=== PATIENT | female | born 1990 | race Caucasian/White ===

== ENCOUNTER 2020-08-11 13:05 | Observation (INO) | payer OTHER ==
[2020-08-11] MEDS ORDERED: SODIUM CHLORIDE 0.9% 1,000 ML IV STA (13:27)
[2020-08-11] MEDS ORDERED: ONDANSETRON 4 MG/2 ML VIAL IVP STA (13:34)
[2020-08-11] MEDS ORDERED: PANTOPRAZOLE 40 MG/10 ML VIAL IVP STA (13:34)
--- NOTE | 2020-08-11 13:36 | ED ---
General Adult HPI - General Chief complaint: Alcohol Stated complaint: Vomiting Time Seen by Provider: 08/11/20 13:11 Source: patient, family, RN notes reviewed Mode of arrival: ambulatory Limitations: no limitations - History of Present Illness Initial comments: Patient is a pleasant 22-year-old female presenting to the emergency Department with alcohol intoxication. Onset of symptoms was this morning. Patient drink alcohol prior to going to [facility]. [place] [facility] found patient executed and advised her to come to the emergency department. Patient states she did vomit once today. Patient does have some epigastric discomfort similar to her chronic pancreatitis. - Related Data Home Medications Medication Instructions Recorded Confirmed No Known Home Medications 08/11/20 08/11/20 Allergies Allergy/AdvReac Type Severity Reaction Status Date / Time amoxicillin Allergy Unknown Verified 08/11/20 13:55 codeine Allergy Rash/Hives Verified 08/11/20 13:56 latex Allergy Rash/Hives/ Verified 08/11/20 13:56 Blisters morphine Allergy Unknown Verified 08/11/20 13:55 Review of Systems ROS Statement: Those systems with pertinent positive or pertinent negative responses have been documented in the HPI. ROS Other: All systems not noted in ROS Statement are negative. Constitutional: Denies: fever Eyes: Denies: eye pain ENT: Denies: ear pain Respiratory: Denies: cough Cardiovascular: Denies: chest pain Endocrine: Denies: fatigue Gastrointestinal: Reports: as per HPI, abdominal pain, nausea, vomiting Genitourinary: Denies: dysuria Musculoskeletal: Denies: back pain Skin: Denies: rash Neurological: Denies: weakness Past Medical History Past Medical History: No Reported History History of Any Multi-Drug Resistant Organisms: None Reported Past Surgical History: Back Surgery Past Psychological History: No Psychological Hx Reported Smoking Status: Current every day smoker Past Alcohol Use History: Abuse, Daily Past Drug Use History: None Reported - Past Family History Mother Additional Family Medical History / Comment(s): HTN General Exam Limitations: no limitations General appearance: alert, in no apparent distress Head exam: Present: normocephalic Eye exam: Present: normal appearance, PERRL, EOMI, nystagmus ENT exam: Present: normal oropharynx Neck exam: Present: normal inspection Respiratory exam: Present: normal lung sounds bilaterally Cardiovascular Exam: Present: tachycardia GI/Abdominal exam: Present: soft, tenderness (Mild epigastric tenderness). Absent: distended, guarding, rebound, rigid, pulsatile mass Extremities exam: Present: normal inspection Neurological exam: Present: alert Psychiatric exam: Present: normal affect, normal mood Skin exam: Present: normal color Course Vital Signs 08/11/20 08/11/20 13:06 15:39 Temperature 98.1 F Pulse Rate 125 H 106 H Respiratory 20 18 Rate Blood Pressure 131/75 139/90 O2 Sat by Pulse 98 99 Oximetry Medical Decision Making - Medical Decision Making Patient and family updated. Case was discussed with Dr. Gonzalez, who will admit covering hospital call. - Lab Data Result diagrams: 08/11/20 13:48 08/11/20 13:48 Disposition Clinical Impression: Alcoholic intoxication Disposition: ADMITTED IP TO THIS HOSP Is patient prescribed a controlled substance at d/c from ED?: No Decision Time: 13:36
[2020-08-11] MEDS ORDERED: NALOXONE 0.4 MG/ML 1 ML VIAL IV PRN (13:37)
[2020-08-11] MEDS ORDERED: LORazepam 2 MG/ML INJ IV PRN (13:38)
[2020-08-11] MEDS: LORazepam 2 MG/ML INJ IV PRN ×4 (13:50→17:41)
[2020-08-11 14:21] LABS: Partial Thromboplastin Time 24.8 sec (22.0-30.0); Prothrombin Time 10.8 sec (9.0-12.0)
[2020-08-11 14:38] LABS: ALT 72 U/L (4-34); AST 94 U/L (14-36); African American GFR (CKD) >90 (>60 ml/min/1.73 sqM); Alkaline Phosphatase 96 U/L (38-126); Amylase 49 U/L (30-110); Anion Gap 17 mmol/L; Blood Urea Nitrogen 16 mg/dL (7-17); Calcium 9.6 mg/dL (8.4-10.2); Carbon Dioxide 20 mmol/L (22-30); Chloride 109 mmol/L (98-107); Glucose 83 mg/dL (74-99); Lipase 125 U/L (23-300); Magnesium 1.9 mg/dL (1.6-2.3); Non-African American GFR(CKD) >90 (>60 ml/min/1.73 sqM); Potassium 4.3 mmol/L (3.5-5.1); Sodium 146 mmol/L (137-145); Total Bilirubin 0.3 mg/dL (0.2-1.3); Total Protein 7.8 g/dL (6.3-8.2)
[2020-08-11 14:51] LABS: Basophils # (A) 0.1 k/uL (0-0.2); Basophils % (A) 1 %; Eosinophils # (A) 0.2 k/uL (0-0.7); Eosinophils % (A) 2 %; HCT 45.7 % (34.0-46.0); HGB 15.8 gm/dL (11.4-16.0); Lymphocytes # (A) 4.5 k/uL (1.0-4.8); Lymphocytes % (A) 35 %; MCH 32.7 pg (25.0-35.0); MCHC 34.7 g/dL (31.0-37.0); MCV 94.4 fL (80.0-100.0); Mean Platelet Volume 7.6; Monocytes # (A) 0.6 k/uL (0-1.0); Monocytes % (A) 5 %; Neutrophils # (A) 7.3 k/uL (1.3-7.7); Neutrophils % (A) 57 %; Platelet Count 365 k/uL (150-450); RBC 4.84 m/uL (3.80-5.40); RDW 12.7 % (11.5-15.5); WBC 12.9 k/uL (3.8-10.6)
[2020-08-11] MEDS: HYDROmorphone 0.5 MG/0.5 ML SYRINGE IVP PRN ×3 (16:29→21:51)
[2020-08-11] MEDS: THIAMINE 100 MG TAB PO SCH (16:29)
[2020-08-11] MEDS: SODIUM CHLORIDE 0.9% 1,000 ML IV SCH (16:30)
[2020-08-11] MEDS ORDERED: ALPRAZolam 0.25 MG TAB PO PRN (19:50)
--- NOTE | 2020-08-11 22:46 | P.HPIM ---
History of Present Illness H&P Date: 08/11/20 Chief Complaint: alcohol intoxication Patient is a 30-year-old female with a long history of daily alcohol use one- point, current everyday smoker was brought to ER due to alcohol intoxication. Patient went to get enrolled in the [place] rehab program but she did not drink prior to going.. Patient was found intoxicated and advised her to go to ER. Patient did have an episode of vomiting this morning. She is also complaining of abdominal pain requesting IV pain medications. Lipase not elevated. Laboratory showed WBC 12.9, hemoglobin 15.8 and platelets 365 Sodium 146 potassium 4.3 chloride 109 bicarb 20. 69 creatinine 0.59 AST 94 ALT 72 and alk phos 96. Amylase 49 lipase 125 Serum alcohol level not reported. Coronavirus PCR not detected. Review of Systems Patient is intoxicated. Complete review of systems could not be obtained except as per HPI. Past Medical History Past Medical History: No Reported History History of Any Multi-Drug Resistant Organisms: None Reported Past Surgical History: Back Surgery Past Psychological History: No Psychological Hx Reported Smoking Status: Current every day smoker Past Alcohol Use History: Abuse, Daily Past Drug Use History: None Reported - Past Family History Mother Additional Family Medical History / Comment(s): HTN Medications and Allergies Home Medications Medication Instructions Recorded Confirmed Type No Known Home Medications 08/11/20 08/11/20 History Allergies Allergy/AdvReac Type Severity Reaction Status Date / Time amoxicillin Allergy Unknown Verified 08/11/20 13:55 codeine Allergy Rash/Hives Verified 08/11/20 13:56 latex Allergy Rash/Hives/ Verified 08/11/20 13:56 Blisters morphine Allergy Unknown Verified 08/11/20 13:55 Physical Exam Vitals: Vital Signs Temp Pulse Pulse Resp BP BP Pulse Ox 08/11/20 16:00 98.3 F 115 H 20 121/85 94 L 08/11/20 15:39 106 H 18 139/90 99 08/11/20 13:06 98.1 F 125 H 20 131/75 98 Intake and Output 08/11/20 08/11/20 08/11/20 06:59 14:59 22:59 Other: Weight 68.039 kg PHYSICAL EXAMINATION: Patient is lying in the bed comfortably, no acute distress, awake alert and oriented. anxious. HEENT: Normocephalic. Neck is supple. Pupils reactive. Nostrils clear. Oral cavity is moist. Neck reveals no JVD, carotid bruits, or thyromegaly. CHEST EXAMINATION: Trachea is central. Symmetrical expansion. Lung larsen clear to auscultation and percussion. CARDIAC: Normal S1, S2 with no gallops. No murmurs ABDOMEN: Soft.Mild epigastric tenderness. Bowel sounds normal. No organomegaly. No abdominal bruits. Extremities: reveal no edema. No clubbing or cyanosis Neurologically awake, alert, oriented x3 with well-coordinated movements. No f ocal deficits noted Skin: No rash or skin lesions. Psychiatric: Coperative. anxious Musculoskeletal: No joint swelling or deformity. Normal range of motion. Results CBC & Chem 7: 08/11/20 13:48 08/11/20 13:48 Labs: Abnormal Lab Results - Last 24 Hours (Table) 08/11/20 08/11/20 Range/Units 13:48 13:48 WBC 12.9 H (3.8-10.6) k/uL Sodium 146 H (137-145) mmol/L Chloride 109 H (98-107) mmol/L Carbon Dioxide 20 L (22-30) mmol/L AST 94 H (14-36) U/L ALT 72 H (4-34) U/L Thrombosis Risk Factor Assmnt - DVT/VTE Prophylaxis DVT/VTE Prophylaxis: Mechanical Prophylaxis ordered Assessment and Plan Assessment: Acute alcohol intoxication Severe alcohol abuse with 1 pint daily Epigastric abdominal pain possible alcoholic gastritis. Current everyday smoker DVT prophylaxis with early ambulation. Plan: Patient will be continued IV hydration with normal saline. Continue with IV Protonix daily and pain management Dilaudid and monitor for alcohol withdrawal symptoms. Continue with multivitamins and thiamine. Patient has been counseled extensively for smoking cessation and alcohol abstinence. Continue to follow closely. Time with Patient: Greater than 30
[2020-08-12] MEDS: ONDANSETRON 4 MG/2 ML VIAL IVP PRN ×3 (00:30→19:25)
[2020-08-12] MEDS: HYDROmorphone 0.5 MG/0.5 ML SYRINGE IVP PRN ×7 (00:54→19:25)
[2020-08-12] MEDS: SODIUM CHLORIDE 0.9% 1,000 ML IV SCH ×3 (03:53→20:10)
[2020-08-12] MEDS: LORazepam 2 MG/ML INJ IV PRN ×3 (07:47→22:50)
[2020-08-12] MEDS: THIAMINE 100 MG TAB PO SCH ×2 (09:34→16:55)
[2020-08-12] MEDS: PANTOPRAZOLE 40 MG/10 ML VIAL IV SCH (09:35)
[2020-08-12 12:11] LABS: Basophils # (A) 0.02 X 10*3/uL (0.00-0.10); Basophils % (A) 0.2 %; Eosinophils # (A) 0.16 X 10*3/uL (0.04-0.35); Eosinophils % (A) 1.7 %; HCT 37.9 % (37.2-46.3); HGB 12.7 g/dL (12.0-15.0); Lymphocytes # (A) 2.29 X 10*3/uL (0.90-5.00); MCH 32.8 pg (27.0-32.0); MCHC 33.5 g/dL (32.0-37.0); MCV 97.9 fL (80.0-97.0); Mean Platelet Volume 10.7 fL (9.5-12.2); Monocytes # (A) 0.52 X 10*3/uL (0.20-1.00); Monocytes % (A) 5.4 %; Neutrophils # (A) 6.55 X 10*3/uL (1.80-7.70); Neutrophils % (A) 68.5 %; Platelet Count 209 X 10*3/uL (140-440); RBC 3.87 X 10*6/uL (4.10-5.20); RDW 12.3 % (11.5-14.5); WBC 9.56 X 10*3/uL (4.50-10.00)
[2020-08-12 12:54] LABS: African American GFR (CKD) 164.3 (60.0-200.0); Anion Gap 13.3 mmol/L (4.00-12.00); Calcium 8.3 mg/dL (8.7-10.3); Carbon Dioxide 18.7 mmol/L (21.6-31.8); Non-African American GFR(CKD) 141.7 (60.0-200.0); Potassium 4.2 mmol/L (3.5-5.5)
[2020-08-12] MEDS: HYDROcodone/APAP 5-325MG 1 EACH TAB PO PRN ×2 (16:57→22:49)
[2020-08-12 18:39] LABS: ALT 58 U/L (4-34); AST 64 U/L (14-36); African American GFR (CKD) >90 (>60 ml/min/1.73 sqM); Albumin 4.3 g/dL (3.5-5.0); Albumin/Globulin Ratio 1.7; Alkaline Phosphatase 75 U/L (38-126); Anion Gap 11 mmol/L; Blood Urea Nitrogen 4 mg/dL (7-17); Calcium 8.8 mg/dL (8.4-10.2); Carbon Dioxide 19 mmol/L (22-30); Chloride 103 mmol/L (98-107); Globulin 2.6 g/dL; Glucose 75 mg/dL (74-99); Non-African American GFR(CKD) >90 (>60 ml/min/1.73 sqM); Potassium 4.6 mmol/L (3.5-5.1); Sodium 133 mmol/L (137-145); Total Bilirubin 1.1 mg/dL (0.2-1.3); Total Protein 6.9 g/dL (6.3-8.2)
[2020-08-13] MEDS: LORazepam 2 MG/ML INJ IV PRN ×2 (01:05→06:04)
[2020-08-13] MEDS ORDERED: HYDROmorphone 0.5 MG/0.5 ML SYRINGE IVP STA ×2 (01:56→08:39)
--- NOTE | 2020-08-13 03:42 | PN ---
PROGRESS NOTE DATE OF SERVICE: 08/12/2020 INTERVAL HISTORY: This 30-year-old woman who was admitted with acute alcohol intoxication is being closely monitored. Patient also had epigastric chest pain. No chest pain. No palpitations. No fever. She is complaining of abdominal pain. PHYSICAL EXAMINATION: Alert and oriented x2. Pulse 91, blood pressure 125/80, respiration 18, temperature 98.2 pulse ox 100% on room air. HEENT: Conjunctivae normal. Oral mucosa moist. NECK: No jugular venous distention. No lymph node enlargement. CARDIOVASCULAR: S1, S2, muffled. No S3, no S4, RESPIRATORY: Diminished breath sounds at the bases. No rhonchi, no crackles. ABDOMEN: Soft, nontender. LEGS: No edema, no swelling. NERVOUS SYSTEM: No focal deficits. LABS: WBC 9.2, hemoglobin 12.7, sodium 133. AST ALT noted. ASSESSMENT: 1. Acute alcohol intoxication. 2. Acute alcohol withdrawal and acute delirium tremens. 3. Epigastric pain, possible alcoholic hepatitis. 4. Gastritis. 5. History of nicotine dependence. 6. Hypernatremia, present on admission. 7. Increased WBC. RECOMMENDATIONS: In this 30-year-old woman who presented with multiple complex medical issues, we will monitor the patient closely, repeat labs. I would also recommend Protonix and CT scan of the abdomen and pelvis. Continue to monitor. Prognosis guarded. Further recommendations to follow. MMODL / AMINATAN: [id number] /
[2020-08-13] MEDS: HYDROcodone/APAP 5-325MG 1 EACH TAB PO PRN ×2 (04:53→10:27)
--- NOTE | 2020-08-13 07:20 | XR ---
EXAMINATION TYPE: XR chest 1V portable DATE OF EXAM: 08/13/2020 CLINICAL HISTORY: Difficulty breathing and CHF. TECHNIQUE: Single AP portable upright view of the chest is obtained. COMPARISON: None FINDINGS: No suspicious focal airspace opacity, pleural effusion, or pneumothorax seen bilaterally. Cardiac silhouette size within normal limits. Osseous structures intact. Overlying metallic nipple or naments incidentally noted. Cholecystectomy clips seen. IMPRESSION: No acute cardiopulmonary process.
[2020-08-13] MEDS: SODIUM CHLORIDE 0.9% 1,000 ML IV SCH ×2 (07:21→11:31)
[2020-08-13] MEDS: ONDANSETRON 4 MG/2 ML VIAL IVP PRN (07:22)
[2020-08-13] MEDS: THIAMINE 100 MG TAB PO SCH (07:22)
[2020-08-13] MEDS: PANTOPRAZOLE 40 MG/10 ML VIAL IV SCH (07:23)
[2020-08-13 07:26] VITALS: RESP 16
[2020-08-13] MEDS: IOPAMIDOL CONTRAST (ORAL USE) VIAL PO PRN ×2 (08:07→09:04)
--- NOTE | 2020-08-13 10:00 | CT ---
EXAMINATION TYPE: CT abdomen pelvis wo con DATE OF EXAM: 08/13/2020 HISTORY: hepatitis, pancreatitis CT DLP: 438.3 mGycm. Automated Exposure Control for Dose Reduction was Utilized. TECHNIQUE: CT scan of the abdomen and pelvis is performed without oral or IV contrast. COMPARISON: NONE FINDINGS: Within the limitations of a non-contrast study, the following observations are made. LUNG BASES: No significant abnormality is appreciated. LIVER/GB: Cholecystectomy clips. Liver size mildly enlarged and heterogeneously hypodense consistent with diffuse fatty infiltration. No biliary dilatation noted. PANCREAS: Mild to moderate ill-defined fluid and fat stranding surrounding the pancreas. Single 3 mil limeter focal calcification in the inferior pancreatic head axial image 57. No well-formed fluid owen ection. SPLEEN: No significant abnormality is seen. ADRENALS: No significant abnormality is seen. KIDNEYS: No significant abnormality is seen. BOWEL: No suspicious small or large bowel dilatation. GENITAL ORGANS: Anteverted uterus. No adnexal masses. Tubular shaped gas structure in the vaginal can al consistent with tampon. No free fluid in the pelvic cul-de-sac. Surgical clip right posterior pelv is presumed displaced cholecystectomy clip. LYMPH NODES: No greater than 1cm abdominal or pelvic lymph nodes are appreciated. OSSEOUS STRUCTURES: Moderate disc space narrowing lumbosacral junction with endplate sclerosis. There is deformity to the left pubis could reflect products of old trauma. OTHER: No significant additional abnormality is seen. IMPRESSION: 1. Mild to moderate diffuse fluid and fat stranding surrounding pancreas consistent with product of a cute pancreatitis. No well-formed fluid collection. Suboptimal study without IV contrast to assess fo r areas of nonenhancement/necrosis. 2. Mild Hepatomegaly with diffuse fatty infiltration.
[2020-08-13 12:58] VITALS: BP 128/88; PULSE 87; TEMP 97.8
[2020-08-13] MEDS: HYDROmorphone 0.5 MG/0.5 ML SYRINGE IVP PRN ×2 (13:11→16:20)
[2020-08-13 13:28] LABS: Amylase 75 U/L (30-110); Lipase 1505 U/L (23-300)
[2020-08-13] MEDS ORDERED: diphenhydrAMINE 50 MG/ML 1 ML VIAL IVP PRN (15:01)
[2020-08-13] MEDS ORDERED: MEROPENEM 2 GM in SODIUM CHLORIDE 0.9% 100 ML IVPB SCH (16:00)
--- NOTE | 2020-08-14 07:44 | DS ---
DISCHARGE SUMMARY DATE OF SERVICE: 08/13/2020 FINAL DIAGNOSIS: 1. Acute alcohol intoxication. 2. Acute pancreatitis. 3. Acute alcohol withdrawal syndrome and acute delirium tremens. 4. Epigastric and possible alcoholic hepatitis. 5. Gastritis. 6. History nicotine dependence. 7. Hypernatremia present on admission, improving. 8. Increased WBC. DISCHARGE DISPOSITION: The patient left the hospital against medical advice. HISTORY OF PRESENT ILLNESS: This is a 30-year-old woman with a past medical history of multiple medical problems was admitted with acute alcohol intoxication. The patient treated symptomatically. The patient also had features of abdominal pain. Abdominal and pelvis CAT scan was done which showed mild to moderate diffuse fluid and fat stranding surrounding the pancreas consistent with acute pancreatitis. Patient treated symptomatically. Mild hepatomegaly was also noted. Amylase was 75 and lipase was increased at 1505. The prognosis was extremely guarded throughout hospitalization, but however the patient left the hospital against medical advice after detailed explanation. MMANA LUISAL / IJN: [id number] /
== END 2020-08-13 17:07 | disposition left against medical advice (07) ==
LOC: EC 13:05 → 4SSUR 13:37
PROVIDERS: ADMIT Internal Medicine; ATTEND Internal Medicine
DX: F10.129 Alcohol abuse with intoxication, unspecified (principal); F10.131 Alcohol abuse with withdrawal delirium; K85.90 Acute pancreatitis without necrosis or infection, unspecified; K76.0 Fatty (change of) liver, not elsewhere classified; E87.0 Hyperosmolality and hypernatremia; K29.70 Gastritis, unspecified, without bleeding; K86.1 Other chronic pancreatitis; F17.200 Nicotine dependence, unspecified, uncomplicated; Z20.822 Contact with and (suspected) exposure to COVID-19; Z91.040 Latex allergy status; Z88.0 Allergy status to penicillin; Z90.49 Acquired absence of other specified parts of digestive tract; Z88.5 Allergy status to narcotic agent; Z53.29 Procedure and treatment not carried out because of patient's decision for other reasons; Z82.49 Family history of ischemic heart disease and other diseases of the circulatory system
CPT/HCPCS: 96376 ×4; 96361 ×2; 96365; 82075; 96375; 99284; 36415; 80053 ×2; 80048; 82150 ×2; 83690 ×2; 83735; 85025 ×2; 85610; 85730; 87635; 71045; 74176; G0378 ×3; G0480; J2060 ×3; J2405 ×3; J2185; C9113 ×3; J1170 ×3; 80320